=== PATIENT | female | born 1965 | race Asian ===

== ENCOUNTER 2022-09-11 14:30 | Outpatient (RCR) | payer OTHER, SELFPAY ==
--- NOTE | 2022-08-21 20:51 | PT.OIE ---
Current Diagnoses Dizziness and giddiness (08/21/22) Visit Care Team Role Provider Type Lorne Ly DO Attending Provider Non-Staff Family Provider Primary Care Provider Referring Provider Specialty: Family Practice Address: [address] [place] [address], [id number] Email: Physical Therapy Initial Evaluation PT-OP-A Visit Information Start: 08/20/22 21:21 Freq: Status: Active Protocol: Document 08/21/22 14:30 AMB (Rec: 08/21/22 14:47 AMB [id number]) Out-Patient Physical Therapy Visit Information Visit Information Visit Type Treatment Note Visit Start Time 14:30 Visit Stop Time 15:15 Total Visit Minutes 45 Visit Number 1 PT-OP-B Current Condition Start: 08/20/22 21:21 Freq: Status: Active Protocol: Document 08/21/22 14:30 AMB (Rec: 08/21/22 14:47 AMB [id number]) Current Condition History of Current Condition Onset Date June 2022 Current Complaints Dizziness History of Current Condition Dizziness for at least a month in June. Spinning. Has had an off and on history of dizziness starting in high school. Current symptoms: 10 seconds of dizziness with looking down for the past couple of weeks. Was having headaches a lot in June. Went to ER in June was given meclizine, but no imaging per pt report. Denies ear pain, changes in hearing, ear fullness, diplopia, dysphagia. Too much yawning will make her dizzy. Denies concussion and migraine history. Feels overall better in comparison to June, but has not returned to her job at [employer] as they want medical clearence again per pts report. Treatment Goals Patient/Caregiver Goals Recover from dizziness Personal Factors Other Personal Factors That May Effect DMII Therapy/Recovery PT-OP-C Subjective Start: 08/20/22 21:21 Freq: Status: Active Protocol: Document 08/21/22 14:30 AMB (Rec: 08/23/22 13:01 AMB [id number]) Patient Questionnaires Dizziness Handicap Inventory DHI Score 56 DHI Functional Impairment 40 to 59% Impaired (Score 40- 59) PT-OP-O Vestibular Start: 08/20/22 21:21 Freq: Status: Active Protocol: Document 08/23/22 15:14 AMB (Rec: 08/23/22 15:23 AMB [id number]) Vestibular Assessment Visual Testing Smooth Pursuits Horizontal WFL Smooth Pursuits Vertical WFL Saccades Horizontal WFL Saccades Vertical WFL Thrust Head Positive Left DVA (Line Degradation) 3 Positional Testing [place]-Hallpike Negative Left,Negative Right Rolling Test Negative Left,Negative Right Vestibular Function Tests Fukuda Test - Comments Vestibular Comments no signs of BPPV at eval, did have symptoms with DVA testing PT-OP-T Assessment and Plan Start: 08/20/22 21:21 Freq: Status: Active Protocol: Document 08/21/22 14:30 AMB (Rec: 08/26/22 20:51 AMB [id number]) Physical Therapy Assessment Rehab Potential Rehabilitation Potential Good Evaluation Complexity Number of Personal Factors/Comorbidities 0 Number of Body Systems Impaired 1-2 Clinical Presentation at Evaluation Stable Impairments Impairments Vestibular Goals Two Impairment Dynamic movement Short Term Goal (STG) Laura will ascend and descend a flight of stairs without dizziness. STG Duration 4 weeks Intermediate Goal (LTG) Laura will walk while turning her head in a horizontal motion without dizziness. LTG Duration 8 weeks One Impairment Spinning Short Term Goal (STG) Laura will perform all bed mobility without dizziness. STG Duration 4 weeks Gatekeeper Goal (LTG) Laura will look down without dizziness. LTG Duration 8 weeks Assessment Summary Assessment Laura attends physical therapy with negative BPPV testing, but acute exacerbation of chronic dizziness. Symptoms appear to be resolving, but pt does so some signs of L unilateral vestibular hypofunction. Pt was concerned about returning to work, stating that she needs a note from a doctor. 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 Will plan to do DGI and further assess balance at next visit. Did give pt VOR exercises due to 3 line DVA and becoming symptomatic with head turns. Physical Therapy Plan Frequency and Duration Frequency of Treatment 1x/Week Duration of treatment (weeks) 10 Plan of Care Start Date 08/21/22 Plan of Care End Date 10/30/22 Therapeutic Interventions Therapeutic Interventions Balance Training,Gait Training ,Neuromuscular Re-education, Self-Care/Home Management, Therapeutic Activities, Therapeutic Exercises Next Visit Focus/Plan Next Note Type Treatment Note Next Visit Plan Assess DGI, dynamic balance with head turns.
--- NOTE | 2022-08-21 20:52 | PT.OPPOC ---
Physical, Occupational & Speech Therapy At [facility] Current Diagnoses Dizziness and giddiness (08/21/22) Visit Care Team Role Provider Type Lorne Ly DO Attending Provider Non-Staff Family Provider Primary Care Provider Referring Provider Specialty: Family Practice Address: [address] [place] [address], [id number] Email: Plan Of Care PT-OP-T Assessment and Plan Start: 08/20/22 21:21 Freq: Status: Active Protocol: Document 08/21/22 14:30 AMB (Rec: 08/26/22 20:51 AMB [id number]) Physical Therapy Assessment Rehab Potential Rehabilitation Potential Good Evaluation Complexity Number of Personal Factors/Comorbidities 0 Number of Body Systems Impaired 1-2 Clinical Presentation at Evaluation Stable Impairments Impairments Vestibular Goals Two Impairment Dynamic movement Short Term Goal (STG) Laura will ascend and descend a flight of stairs without dizziness. STG Duration 4 weeks Skilled Nursing Goal (LTG) Laura will walk while turning her head in a horizontal motion without dizziness. LTG Duration 8 weeks One Impairment Spinning Short Term Goal (STG) Laura will perform all bed mobility without dizziness. STG Duration 4 weeks Peoplesoft Goal (LTG) Laura will look down without dizziness. LTG Duration 8 weeks Assessment Summary Assessment Laura attends physical therapy with negative BPPV testing, but acute exacerbation of chronic dizziness. Symptoms appear to be resolving, but pt does so some signs of L unilateral vestibular hypofunction. Pt was concerned about returning to work, stating that she needs a note from a doctor. 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 Will plan to do DGI and further assess balance at next visit. Did give pt VOR exercises due to 3 line DVA and becoming symptomatic with head turns. Physical Therapy Plan Frequency and Duration Frequency of Treatment 1x/Week Duration of treatment (weeks) 10 Plan of Care Start Date 08/21/22 Plan of Care End Date 10/30/22 Therapeutic Interventions Therapeutic Interventions Balance Training,Gait Training ,Neuromuscular Re-education, Self-Care/Home Management, Therapeutic Activities, Therapeutic Exercises Next Visit Focus/Plan Next Note Type Treatment Note Next Visit Plan Assess DGI, dynamic balance with head turns. Plan of Care Dates Plan of Care Start Date 08/21/22 Plan of Care End Date 10/30/22 Electronically Signed by: Bernice Zimmerman, PT 08/26/222051 If you are in agreement with this Plan of Care, please return a signed and dated copy. I have reviewed this Plan of Care and certify that the skilled therapy services above are required to meet the patient?s needs. Physician Signature Date Printed Name and Credentials Clinical Instructor Signature Printed Name and Credentials
--- NOTE | 2022-08-28 08:12 | PT.OTN ---
Current Diagnoses Dizziness and giddiness (08/28/22) Physical Therapy Treatment Note PT-OP-A Visit Information Start: 08/20/22 21:21 Freq: Status: Active Protocol: Document 08/28/22 13:48 AMB (Rec: 08/28/22 14:33 AMB [id number]) Out-Patient Physical Therapy Visit Information Visit Information Visit Type Treatment Note Visit Start Time 13:45 Visit Stop Time 14:30 Total Visit Minutes 45 Visit Number 2 PT-OP-B Current Condition Start: 08/20/22 21:21 Freq: Status: Active Protocol: Document 08/21/22 14:30 AMB (Rec: 08/21/22 14:47 AMB [id number]) Current Condition History of Current Condition Onset Date June 2022 Current Complaints Dizziness History of Current Condition Dizziness for at least a month in June. Spinning. Has had an off and on history of dizziness starting in high school. Current symptoms: 10 seconds of dizziness with looking down for the past couple of weeks. Was having headaches a lot in June. Went to ER in June was given meclizine, but no imaging per pt report. Denies ear pain, changes in hearing, ear fullness, diplopia, dysphagia. Too much yawning will make her dizzy. Denies concussion and migraine history. Feels overall better in comparison to June, but has not returned to her job at [employer] as they want medical clearence again per pts report. Treatment Goals Patient/Caregiver Goals Recover from dizziness Personal Factors Other Personal Factors That May Effect DMII Therapy/Recovery PT-OP-C Subjective Start: 08/20/22 21:21 Freq: Status: Active Protocol: Document 08/28/22 13:48 AMB (Rec: 08/28/22 14:33 AMB [id number]) OP-PT Subjective Patient Comments Patient Comments Headache and dizziness since this morning. 8/10 dizziness with static sitting and then gets worse with movement. Previously was happening more motion sickness and now dizzy just sitting there. VOR exercise is symptomatic, but after a few minutes of rest, pt 's dizziness is back to baseline. PT-OP-O Vestibular Start: 08/20/22 21:21 Freq: Status: Active Protocol: Document 08/23/22 15:14 AMB (Rec: 08/23/22 15:23 AMB [id number]) Vestibular Assessment Visual Testing Smooth Pursuits Horizontal WFL Smooth Pursuits Vertical WFL Saccades Horizontal WFL Saccades Vertical WFL Thrust Head Positive Left DVA (Line Degradation) 3 Positional Testing Rick-Hallpike Negative Left,Negative Right Rolling Test Negative Left,Negative Right Vestibular Function Tests Fukuda Test - Comments Vestibular Comments no signs of BPPV at eval, did have symptoms with DVA testing PT-OP-Q Treatments Start: 08/20/22 21:21 Freq: Status: Active Protocol: Document 08/28/22 13:45 AMB (Rec: 08/29/22 07:59 AMB [id number]) Neuro Re-Education Treatment Vestibular Rehabilitation VOR Retraining Comments Reviewed HEP, pt is performing at home. Other Activities 1 Comments Recheck Rick Hallpike bilateral and supine roll test. Right Ebro Hallpike did increase symptoms, but no nystagmus visible, pt's dizziness increased as being held in R DixHallpike rather than subsiding. when sitting back up, pt's nausea increased to the point of vomiting. PT-OP-T Assessment and Plan Start: 08/20/22 21:21 Freq: Status: Active Protocol: Document 08/28/22 13:48 AMB (Rec: 08/28/22 14:33 AMB [id number]) Physical Therapy Assessment Goals Two Impairment Dynamic movement Short Term Goal (STG) Laura will ascend and descend a flight of stairs without dizziness. STG Duration 4 weeks Intermediate Goal (LTG) Laura will walk while turning her head in a horizontal motion without dizziness. LTG Duration 8 weeks One Impairment Spinning Short Term Goal (STG) Laura will perform all bed mobility without dizziness. STG Duration 4 weeks Pharmacy Billing Adjudicator Goal (LTG) Laura will look down without dizziness. LTG Duration 8 weeks Assessment Summary Assessment Pt vomited after DixHallpike, was symptomatic after. Today was a worse day. Does have head pressure. Worst symptoms with the R but did not have nystagmus with R or L. Discussed next steps with patient and . Could continue with vestibular therapy, but pt's is currently driving her to PT appointments and needs to take time off of his work to do so . They are wondering if referral to ENT vs neurology is warranted. Encouraged to come to one more vestibular appt for continued instruction in HEP and then if sx persist and coming to PT is a burden then could absolutely send note over to referring PCP and have PCP discuss further referrals with them. Physical Therapy Plan Next Visit Focus/Plan Next Note Type Treatment Note Next Visit Plan Assess DGI, dynamic balance with head turns.
--- NOTE | 2022-09-04 14:30 | PT.OTN ---
Current Diagnoses Dizziness and giddiness (09/04/22) Physical Therapy Treatment Note PT-OP-A Visit Information Start: 08/20/22 21:21 Freq: Status: Active Protocol: Document 09/04/22 13:46 AMB (Rec: 09/04/22 14:34 AMB [id number]) Out-Patient Physical Therapy Visit Information Visit Information Visit Type Treatment Note Visit Start Time 13:45 Visit Stop Time 14:30 Total Visit Minutes 45 Visit Number 3 PT-OP-B Current Condition Start: 08/20/22 21:21 Freq: Status: Active Protocol: Document 08/21/22 14:30 AMB (Rec: 08/21/22 14:47 AMB [id number]) Current Condition History of Current Condition Onset Date June 2022 Current Complaints Dizziness History of Current Condition Dizziness for at least a month in June. Spinning. Has had an off and on history of dizziness starting in high school. Current symptoms: 10 seconds of dizziness with looking down for the past couple of weeks. Was having headaches a lot in June. Went to ER in June was given meclizine, but no imaging per pt report. Denies ear pain, changes in hearing, ear fullness, diplopia, dysphagia. Too much yawning will make her dizzy. Denies concussion and migraine history. Feels overall better in comparison to June, but has not returned to her job at [employer] as they want medical clearence again per pts report. Treatment Goals Patient/Caregiver Goals Recover from dizziness Personal Factors Other Personal Factors That May Effect DMII Therapy/Recovery PT-OP-C Subjective Start: 08/20/22 21:21 Freq: Status: Active Protocol: Document 09/04/22 13:46 AMB (Rec: 09/04/22 14:34 AMB [id number]) OP-PT Subjective Patient Comments Patient Comments 01/19 dizziness. PT-OP-O Vestibular Start: 08/20/22 21:21 Freq: Status: Active Protocol: Document 08/23/22 15:14 AMB (Rec: 08/23/22 15:23 AMB [id number]) Vestibular Assessment Visual Testing Smooth Pursuits Horizontal WFL Smooth Pursuits Vertical WFL Saccades Horizontal WFL Saccades Vertical WFL Thrust Head Positive Left DVA (Line Degradation) 3 Positional Testing [place]-Hallpike Negative Left,Negative Right Rolling Test Negative Left,Negative Right Vestibular Function Tests Fukuda Test - Comments Vestibular Comments no signs of BPPV at eval, did have symptoms with DVA testing PT-OP-Q Treatments Start: 08/20/22 21:21 Freq: Status: Active Protocol: Document 09/04/22 13:45 AMB (Rec: 09/05/22 13:19 AMB [id number]) Neuro Re-Education Treatment Balance Activities DGI Details Comments reaches out towards wall of hallway with head turns but doesn't have lele LOB. Vestibular Rehabilitation self Yenny Comments explained only to use if has lele spinning with rolling over in bed that lasts 5-30 seconds and knows what side is the worst. Educated pt and . Educated per pt request. VOR 2 Background plain Distance From Target arm length Speed slow Position NBOS Reps/Duration 15x5 Comments mildly increaes sx in standing VOR Retraining Background plain Distance From Target arm length Speed moderate Position NBOS Reps/Duration 30x4 PT-OP-T Assessment and Plan Start: 08/20/22 21:21 Freq: Status: Active Protocol: Document 09/04/22 13:46 AMB (Rec: 09/04/22 14:34 AMB [id number]) Physical Therapy Assessment Goals Two Impairment Dynamic movement Short Term Goal (STG) Laura will ascend and descend a flight of stairs without dizziness. STG Duration 4 weeks Betting Agency Manager Goal (LTG) Laura will walk while turning her head in a horizontal motion without dizziness. LTG Duration 8 weeks One Impairment Spinning Short Term Goal (STG) Laura will perform all bed mobility without dizziness. STG Duration 4 weeks Betting Agency Manager Goal (LTG) Laura will look down without dizziness. LTG Duration 8 weeks Assessment Summary Assessment DGI: 3,3,2,2,2,3,2,2=. Laura presents with less dizziness today, reports 3/10 at baseline without movement DGI and VOR increase sx slightly but not excessively and they come back down quickly. Pt feels that sleep is the biggest pattern to her dizziness, as after a poor night of sleep her dizziness increases. She is getting a Cpap in the next few days and is hopeful that will improve her sx. Letter provided today to give to her employer, and copy scanned into medical record per her request. She feels she is getting closer to her baseline. Encouraged to assess pt's driving before pt drives to work. As pt has not been driving since June, but feels she would be able to without issue. Physical Therapy Plan Frequency and Duration Frequency of Treatment 1x/Week Duration of treatment (weeks) 10 Plan of Care Start Date 08/21/22 Plan of Care End Date 10/30/22 Therapeutic Interventions Therapeutic Interventions Balance Training,Gait Training ,Neuromuscular Re-education, Self-Care/Home Management, Therapeutic Activities, Therapeutic Exercises Next Visit Focus/Plan Next Note Type Treatment Note Next Visit Plan Progress HEP for dynamic balance with head turns as tolerated, further evaluation of dizziness as needed.
--- NOTE | 2022-09-11 14:48 | PT.OTN ---
Current Diagnoses Dizziness and giddiness (09/11/22) Physical Therapy Treatment Note PT-OP-A Visit Information Start: 08/20/22 21:21 Freq: Status: Active Protocol: Document 09/11/22 14:30 DCW (Rec: 09/11/22 14:48 DCW [id number]) Out-Patient Physical Therapy Visit Information Visit Information Visit Type Treatment Note Visit Start Time 14:30 Visit Stop Time 14:45 Total Visit Minutes 15 Visit Number 4 PT-OP-B Current Condition Start: 08/20/22 21:21 Freq: Status: Active Protocol: Document 08/21/22 14:30 AMB (Rec: 08/21/22 14:47 AMB [id number]) Current Condition History of Current Condition Onset Date June 2022 Current Complaints Dizziness History of Current Condition Dizziness for at least a month in June. Spinning. Has had an off and on history of dizziness starting in high school. Current symptoms: 10 seconds of dizziness with looking down for the past couple of weeks. Was having headaches a lot in June. Went to ER in June was given meclizine, but no imaging per pt report. Denies ear pain, changes in hearing, ear fullness, diplopia, dysphagia. Too much yawning will make her dizzy. Denies concussion and migraine history. Feels overall better in comparison to June, but has not returned to her job at [employer] as they want medical clearence again per pts report. Treatment Goals Patient/Caregiver Goals Recover from dizziness Personal Factors Other Personal Factors That May Effect DMII Therapy/Recovery PT-OP-C Subjective Start: 08/20/22 21:21 Freq: Status: Active Protocol: Document 09/11/22 14:30 DCW (Rec: 09/11/22 14:48 DCW [id number]) OP-PT Subjective Patient Comments Patient Comments Pt reporting no dizziness since last visit. Returning to work Sunday. PT-OP-O Vestibular Start: 08/20/22 21:21 Freq: Status: Active Protocol: Document 08/23/22 15:14 AMB (Rec: 08/23/22 15:23 AMB [id number]) Vestibular Assessment Visual Testing Smooth Pursuits Horizontal WFL Smooth Pursuits Vertical WFL Saccades Horizontal WFL Saccades Vertical WFL Thrust Head Positive Left DVA (Line Degradation) 3 Positional Testing [place]-Hallpike Negative Left,Negative Right Rolling Test Negative Left,Negative Right Vestibular Function Tests Fukuda Test - Comments Vestibular Comments no signs of BPPV at eval, did have symptoms with DVA testing PT-OP-Q Treatments Start: 08/20/22 21:21 Freq: Status: Active Protocol: Document 09/11/22 14:30 DCW (Rec: 09/11/22 14:48 DCW [id number]) Neuro Re-Education Treatment Balance Activities [place] /c Head turns Details 3-step, bow and head turns Tandem Ambulation Details Tandem amb down hallway Vestibular Rehabilitation X1 Viewing Details X1 viewing ambulating down hallway PT-OP-T Assessment and Plan Start: 08/20/22 21:21 Freq: Status: Active Protocol: Document 09/11/22 14:30 DCW (Rec: 09/11/22 14:48 DCW [id number]) Physical Therapy Assessment Goals Two Impairment Dynamic movement Short Term Goal (STG) Laura will ascend and descend a flight of stairs without dizziness. STG Duration 4 weeks Intermediate Goal (LTG) Laura will walk while turning her head in a horizontal motion without dizziness. LTG Duration 8 weeks One Impairment Spinning Short Term Goal (STG) Laura will perform all bed mobility without dizziness. STG Duration 4 weeks Intermediate Goal (LTG) Laura will look down without dizziness. LTG Duration 8 weeks Assessment Summary Assessment Pt presents with no symptoms, concerns, or complaints. Tolerated new vestibular/ balance challenges very well. Has not yet returned to work, but will on Sunday. In agreement to not schedule any more follow-up visits, but will keep chart open for 3-4 weeks just in case she becomes more symptomatic following a return to work. If there is no follow-up, pt will be discharged at that time. Physical Therapy Plan Frequency and Duration Frequency of Treatment 1x/Week Duration of treatment (weeks) 10 Plan of Care Start Date 08/21/22 Plan of Care End Date 10/30/22 Therapeutic Interventions Therapeutic Interventions Balance Training,Gait Training ,Neuromuscular Re-education, Self-Care/Home Management, Therapeutic Activities, Therapeutic Exercises Next Visit Focus/Plan Next Note Type Treatment Note Next Visit Plan Progress HEP for dynamic balance with head turns as tolerated, further evaluation of dizziness as needed.
--- NOTE | 2022-10-11 08:38 | PT.OPDS ---
Current Diagnoses Dizziness and giddiness (09/11/22) Visit Care Team Role Provider Type Lorne Ly DO Attending Provider Non-Staff Family Provider Primary Care Provider Referring Provider Specialty: Family Practice Address: [address] [place] [address], [id number] Email: Visit Number Visit Number 4 Discharge Summary PT-OP-B Current Condition Start: 08/20/22 21:21 Freq: Status: Active Protocol: Document 08/21/22 14:30 AMB (Rec: 08/21/22 14:47 AMB [id number]) Current Condition History of Current Condition Onset Date June 2022 Current Complaints Dizziness History of Current Condition Dizziness for at least a month in June. Spinning. Has had an off and on history of dizziness starting in high school. Current symptoms: 10 seconds of dizziness with looking down for the past couple of weeks. Was having headaches a lot in June. Went to ER in June was given meclizine, but no imaging per pt report. Denies ear pain, changes in hearing, ear fullness, diplopia, dysphagia. Too much yawning will make her dizzy. Denies concussion and migraine history. Feels overall better in comparison to June, but has not returned to her job at [employer] as they want medical clearence again per pts report. Treatment Goals Patient/Caregiver Goals Recover from dizziness Personal Factors Other Personal Factors That May Effect DMII Therapy/Recovery PT-OP-C Subjective Start: 08/20/22 21:21 Freq: Status: Active Protocol: Document 09/11/22 14:30 DCW (Rec: 09/11/22 14:48 DCW [id number]) OP-PT Subjective Patient Comments Patient Comments Pt reporting no dizziness since last visit. Returning to work Sunday. PT-OP-O Vestibular Start: 08/20/22 21:21 Freq: Status: Active Protocol: Document 08/23/22 15:14 AMB (Rec: 08/23/22 15:23 AMB [id number]) Vestibular Assessment Visual Testing Smooth Pursuits Horizontal WFL Smooth Pursuits Vertical WFL Saccades Horizontal WFL Saccades Vertical WFL Thrust Head Positive Left DVA (Line Degradation) 3 Positional Testing Rick-Hallpike Negative Left,Negative Right Rolling Test Negative Left,Negative Right Vestibular Function Tests Fukuda Test - Comments Vestibular Comments no signs of BPPV at eval, did have symptoms with DVA testing PT-OP-T Assessment and Plan Start: 08/20/22 21:21 Freq: Status: Active Protocol: Document 10/11/22 08:23 AMB (Rec: 10/11/22 08:38 AMB [id number]) Physical Therapy Assessment Goals Two Impairment Dynamic movement Short Term Goal (STG) Laura will ascend and descend a flight of stairs without dizziness. STG Duration MET Residential Goal (LTG) Laura will walk while turning her head in a horizontal motion without dizziness. LTG Duration MET One Impairment Spinning Short Term Goal (STG) Laura will perform all bed mobility without dizziness. STG Duration MET Project Developer Goal (LTG) Laura will look down without dizziness. LTG Duration MET Assessment Summary Assessment Pt was seen one month ago, with no symptoms or concerns, told pt at that time would put her on hold for 3-4 weeks so that pt would have time to return to work and see how that changed her sx. She has not reached out to the clinic, so is discharged at this time . Physical Therapy Plan Next Visit Focus/Plan Next Note Type Treatment Note Next Visit Plan Progress HEP for dynamic balance with head turns as tolerated, further evaluation of dizziness as needed.
== END 2022-10-12 09:24 | disposition home or self-care (01) ==
LOC: PHYS 14:30
PROVIDERS: Family Provider Family Medicine; PCP Family Medicine; Referring Provider Family Medicine; Visit Provider Family Medicine
DX: R42 Dizziness and giddiness (principal)
CPT/HCPCS: 97112; 97161